=== PATIENT | female | born 1995 ===

== ENCOUNTER 2024-07-17 10:05 | Day surgery (SDC) | payer SELFPAY ==
[2024-11-07] MEDS: ALBUMIN HUMAN 50 GM/200 ML VIAL IV (16:06)
== END 2024-07-17 10:10 | disposition home or self-care (01) ==
LOC: OR 10:08
PROVIDERS: Referring Provider Obstetrics & Gynecology Gynecology; Visit Provider Obstetrics & Gynecology Gynecology
DX: Z12.11 Encounter for screening for malignant neoplasm of colon (principal)
CPT/HCPCS: G0121